=== PATIENT | male | born 1985 | race Two or more races ===

== ENCOUNTER 2025-02-15 21:19 | Inpatient (IN) | payer OTHER ==
[~2025-02-15] VITALS: Ht 175.3 cm; Wt 83.9 kg
--- NOTE | 2025-02-15 21:42 | ED.PDOC ---
History of Present Illness HPI Comments 39 year old male presents to the ED with a chief complaint of dizziness onset today (02/15/25). states patient was doing exercise when he williamson experiencing dizziness, HR was 150, was pale, experienced syncope episode. states patient has experienced 3 similar episodes, last episode was 1 year ago. 911 was called, patient had elevated HR, symptoms were improving, decided to drive patient to ED. Upon ED arrival, patient began experiencing chest tightness, generalized weakness, headache, numbness sensation. BP was 137/82, HR 117. Denies abdominal pain, nausea, vomiting, diarrhea, cough, congestion, head injury. No other symptoms or modifying factors present at this time. Chief Complaint: Dizziness Time Seen by MD: 21:28 Reviewed Notes: Medications, Allergies Allergies: Coded Allergies: NO KNOWN ALLERGIES (Unverified , 02/15/25) Information Source: Patient, Spouse Mode of Arrival: Ambulatory Severity: Moderate Timing: Hours Duration: Since onset Prehospital treatment: None Past Medical History Surgical History: Denies all surgeries Family History Family History: Reviewed,noncontributory to illness, No family hx of Cancer, No family hx of DM, No family hx of Heart bill, No family hx of HTN, No family hx ofKidney bill, No family hx of Liver bill, No family hx of Lung bill, No family hx of Stroke Social History Smoker: Non-Smoker Alcohol: Denies ETOH Use Drugs: Denies Drug Use Lives In: Home Constitutional: reports: sweats, weakness, others (pale); denies: chills, diaphoresis, fatigue, fever, malaise EENTM: denies: blurred vision, double vision, ear bleeding, ear discharge, ear drainage, ear pain, ear ringing, eye pain, eye redness, hearing loss, mouth pain, mouth swelling, nasal discharge, nose bleeding, nose congestion, nose pain, photophobia, tearing, throat pain, throat swelling, voice changes, others Respiratory: denies: cough, hemoptysis, orthopnea, SOB at rest, shortness of breath, SOB with excertion, stridor, wheezing, others Cardiovascular: reports: chest pain; denies: dizzy spells, diaphoresis, Dyspnea on exertion, edema, irregular heart beat, left arm pain, lightheadedness, palpitations, PND, syncope, others Gastrointestinal: denies: abdomen distended, abdominal pain, blood streaked bowels, constipated, diarrhea, dysphagia, difficulty swallowing, hematemesis, melena, nausea, poor appetite, poor fluid intake, rectal bleeding, rectal pain, vomiting, others Neurological: reports: dizziness, headache, numbness, weakness; denies: fainting, left sided numbness, left sided weakness, paresthesia, pre-existing deficit, right sided numbness, right sided weakness, seizure, speech problems, tingling, tremors, others Musculoskeletal: denies: back pain, gout, joint pain, joint swelling, muscle pain, muscle stiffness, neck pain, others Integumetry: reports: change in color (pale); denies: bruises, change in hair/nails, dryness, laceration, lesions, lumps, rash, wounds, others Allergic/Immunocompromised: denies: Difficulty Healing, Frequent Infections, Hives, Itching, others Hematologic/Lymphatic: denies: anemia, blood clots, easy bleeding, easy bruising, swollen glands, others Endocrine: denies: excessive hunger, excessive sweating, excessive thirst, excessive urination, flushing, intolerance to cold, intolerance to heat, unexplained weight gain, unexplained weight loss, others Psychiatric: denies: anxiety, bipolar disorder, depression, hopeless, panic disorder, schizophrenia, sleepless, suicidal, others All Other Systems: Reviewed and Negative Physical Exam General Appearance: No Apparent Distress, Normal HEENT: Normal ENT Inspection, Pharynx Normal, TMs Normal Neck: Full Range of Motion, Non-Tender, Normal, Normal Inspection Respiratory: Chest Non-Tender, Lungs Clear, No Accessory Muscle Use, No Respiratory Distress, Normal Breath Sounds Cardiovascular: No Edema, No JVD, No Murmur, No Gallop, Normal Peripheral Pulses, Regular Rate/Rhythm Breast Exam: Deferred Gastrointestinal: No Organomegaly, Non Tender, No Pulsatile Mass, Normal Bowel Sounds, Soft Genitalia: Deferred Pelvic: Deferred Rectal: Deferred Extremities: No calf tenderness, Normal capillary refill, Normal inspection, Normal range of motion, Non-tender, No pedal edema Musculoskeletal : Apperance: Normal Neurologic: Alert, acquisitions assistant II-XII nml as Tested, No Motor Deficits, Normal Affect, Normal Mood, No Sensory Deficits Cerebellar Function: Normal Reflexes: Normal Skin: Dry, Normal Color, Warm Lymphatic: No Adenopathy Was a procedure done? Was a procedure done?: No Differential Dx Considerations may include: ACS, CVA, CHF, viral syndrome X-Ray, Labs, Meds, VS Vital Signs Date Time Temp Pulse Resp B/P (MAP) Pulse Ox O2 Delivery O2 Flow Rate FiO2 02/15/25 22:26 98.4 118 20 129/68 (88) 100 98.4 02/15/25 22:26 125 02/15/25 21:26 121 02/15/25 21:19 98.4 115 20 132/81 (98) 100 98.4 Lab Test 02/15/25 22:29 02/15/25 21:30 Range/Units Troponin I High Sensitivity 12 5 </=54 ng/L White Blood Count 12.3 H 4.4-10.8 10^3/uL Red Blood Count 5.17 4.5-5.90 10^6/uL Hemoglobin 16.0 13.5-17.5 g/dL Hematocrit 47.6 41.0-53.0 % Mean Corpuscular Volume 91.9 80.0-100.0 fL Mean Corpuscular Hemoglobin 31.0 28.0-32.0 pg Mean Corpuscular Hemoglobin Concent 33.7 32.0-36.0 g/dL Red Cell Distribution Width 14.6 H 11.8-14.3 % Platelet Count 324 140-450 10^3/uL Mean Platelet Volume 7.5 6.9-10.8 fL Neutrophils (%) (Auto) 63.6 37.0-80.0 % Lymphocytes (%) (Auto) 27.2 10.0-50.0 % Monocytes (%) (Auto) 7.0 0.0-12.0 % Eosinophils (%) (Auto) 1.6 0.0-7.0 % Basophils (%) (Auto) 0.6 0.0-2.0 % Neutrophils # (Auto) 7.8 1.6-8.6 10 ^3/uL Lymphocytes # (Auto) 3.3 0.4-5.4 10 ^3/uL Monocytes # (Auto) 0.9 0-1.3 10 ^3/uL Eosinophils # (Auto) 0.2 0-0.8 10 ^3/uL Basophils # (Auto) 0.1 0-0.2 10 ^3/uL Nucleated Red Blood Cells 0.1 % Sodium Level 137 136-145 mmol/L Potassium Level 3.4 L 3.5-5.1 mmol/L Chloride Level 105 98-107 mmol/L Carbon Dioxide Level 17 L 20-31 mmol/L Anion Gap 15 5-15 Blood Urea Nitrogen 18 9-23 mg/dL Creatinine 1.49 H 0.700-1.30 mg/dL Glomerular Filtration Rate Calc 60 >90 mL/min BUN/Creatinine Ratio 12.1 10.0-20.0 Serum Glucose 152 H 74-106 mg/dL Calcium Level 10.0 8.7-10.4 mg/dL Current Medications Medications (Trade) Dose Ordered Sig/Raúl Route Start Time Stop Time Status Last Admin Sodium Chloride 1,000 ml @ 1,000 mls/hr Q1H ONCE IV 02/15/25 21:45 02/15/25 22:44 DC 02/15/25 22:39 Ondansetron HCl (Zofran) 4 mg ONCE ONCE IV 02/15/25 21:45 02/15/25 21:46 DC 02/15/25 22:38 [place] [address] Ph: [phone] DIAGNOSTIC IMAGING Diagnostic Imaging Report : [id number] Signed PATIENT: MARÍA ELENA ECHOLS ACCT: [id number] UNIT: [id number] : 1985 LOC: ER ROOM / BED: / AGE / SEX: 39 / M ADM STATUS: REG ER SERVICE 32 ORDERING PHYSICIAN: TO SAN MD PROCEDURE(s): CXRP - CHEST PORTABLE REASON: syncope ORDER NUMBER(s): [id number], ACCESSION NUMBER(s): [id number] CHEST RADIOGRAPH Indication: syncope Technique: Single frontal view of the chest was obtained Comparison: None FINDINGS: Lines and Tubes: None Lungs: No focal consolidation. Pleura: No effusion. No pneumothorax. Cardiomediastinal contours: Unremarkable Bones: No acute osseous abnormality. IMPRESSION: 1. No acute cardiopulmonary disease. ATED BY: IMER GARCIA MD DICTATED DATE/TIME: 02/15/252199 SIGNED BY: IMER GARCIA MD SIGNED DATE/TIME: 02/15/252199 CC: [address] [address] Ph: [phone] DIAGNOSTIC IMAGING Diagnostic Imaging Report : [id number] Signed PATIENT: MARÍA ELENA ECHOLS ACCT: [id number] UNIT: [id number] : 1985 LOC: ER ROOM / BED: / AGE / SEX: 39 / M ADM STATUS: REG ER SERVICE 32 ORDERING PHYSICIAN: TO SAN MD PROCEDURE(s): HWOCT - HEAD WITHOUT CONTRAST REASON: syncope ORDER NUMBER(s): [id number], ACCESSION NUMBER(s): [id number] EXAM: CT HEAD WITHOUT CONTRAST INDICATION: syncope TECHNIQUE: CT of the head without intravenous contrast. Radiation Dose Information: CT Dose: CTDI volume is 58.21 mGy. Dose-length product is 1263.52 mGy*cm The dose indicators for CT are the volume Computed Tomography (CT) Dose Index (CTDIvol) and the Dose Length Product (DLP), and are measured in units of mGy and mGy-cm, respectively. These indicators are not patient dose, but values generated from the CT scanner acquisition factors. The report includes radiation exposure data for exposures received during this examination. COMPARISON: None FINDINGS: There is no evidence of acute intracranial hemorrhage, extra-axial collection, mass effect, midline shift, herniation or hydrocephalus. The ventricles, sulci and cisterns are age appropriate. The sloan-white differentiation is intact. Patchy periventricular and subcortical white matter hypoattenuation is nonspecific but may be related to small vessel ischemic disease. The visualized paranasal sinuses and mastoid air cells are clear. The surrounding soft tissues and osseous structures are unremarkable. IMPRESSION: 1. No acute intracranial hemorrhage 2. No CT findings of territorial ischemia. ATED BY: KINJAL CROCKETT Jr., DO DICTATED DATE/TIME: 02/15/252207 SIGNED BY: KINJAL CROCKETT Jr., DO SIGNED DATE/TIME: 02/15/252207 CC: Time of 1ST Reevaluation: 21:58 Reevaluation 1ST: Unchanged Patient Education/Counseling: Diagnosis, Treatment, Prognosis Family Education/Counseling: Diagnosis, Treatment, Prognosis Additional Information The following tests were ordered, and results were reviewed by me:UA, BMP, CBC, TROP-x3, DRUG SCREEN, XY CHEST, CT HEAD WO CONTRAST Additional Information was gathered from interviewing the following independent historians: I reviewed and agreed with the following test results read by other providers: XY CHEST, CT HEAD WO CONTRAST I discussed treatment and results with medical personnel and: patient, Comprehensive systems review obtained and negative except for what is stated in the HPI. Departure 1 Departure Time of Disposition: 00:14 (Patient presented with syncope today and should be admitted. Data: 1. I ordered and reviewed the result of at least 3 labs including a CBC, BMP, and troponin. 2. I independently interpreted the following tests: EKG which shows a sinus tachycardia and a chest x-ray which shows benign chest and a CT head which shows benign brain.Risk:This patient has a high risk of morbidity due to further diagnostic testing or treatment and may suffer from an acute cardiac, neurologic, or infectious disorder. Rationale: Patient should be admitted to the hospital for further management.) Impression: Primary Impression: Syncope and collapse Additional Impression: Dehydration Disposition: 09 ADMITTED INPATIENT Admit to: Med Surg Condition: Serious Critical Care Note Critical Care Time?: Yes Critical care comment: Syncope and collapse Authorized and Performed by: To San MD Total critical care time: Approximately 39 minutes Due to a high probability of clinically significant, life threatening deterioration, the patient required my highest level of preparedness to intervene emergently and I personally spent this critical care time directly and personally managing the patient. This critical care time included obtaining a history; examining the patient; pulse oximetry; ordering and review of studies; arranging urgent treatment with development of a management plan; evaluation of patient's response to treatment; frequent reassessment; and, discussions with other providers. This critical care time was performed to assess and manage the high probability of imminent, life-threatening deterioration that could result in multi-organ failure. It was exclusive of separately billable procedures and treating other patients and teaching time. Please see my other sections and the rest of the note for further information on patient assessment and treatment. Stability Stability form required: No I personally scribed for TO SAN MD ([email or web address]) on 02/15/25 at 21:42. Electronically submitted by Argenis [email or web address]). [facility] on 02/15/25 at 22:15. Electronically submitted by Argenis Cassidy ([email or web address]). I personally scribed for TO SAN MD ([facility]) on 02/15/25 at 22:16. Electronically submitted by Argenis Cassidy ([email or web address]). I personally scribed for TO SAN MD ([facility]) on 02/15/25 at 22:50. Electronically submitted by Argenis Cassidy ([email or web address]). TO SAN MD Feb 15, 2025 21:42
[2025-02-15 21:54] LABS: Basophils # (auto) 0.1 10 ^3/uL (0-0.2); Basophils % (auto) 0.6 % (0.0-2.0); Eosinophils # (auto) 0.2 10 ^3/uL (0-0.8); Eosinophils % (auto) 1.6 % (0.0-7.0); Hematocrit 47.6 % (41.0-53.0); Lymphocytes # (auto) 3.3 10 ^3/uL (0.4-5.4); Lymphocytes % (auto) 27.2 % (10.0-50.0); Mean Corpuscular Hgb Conc. 33.7 g/dL (32.0-36.0); Mean Corpuscular Volume 91.9 fL (80.0-100.0); Monocytes # (auto) 0.9 10 ^3/uL (0-1.3); Neutrophils # (auto) 7.8 10 ^3/uL (1.6-8.6); Neutrophils % (auto) 63.6 % (37.0-80.0); Nucleated Red Blood Cells % 0.1 %; Platelet Count (auto) 324 10^3/uL (140-450); Red Blood Cells 5.17 10^6/uL (4.5-5.90); Red Cell Distribution Width 14.6 % (11.8-14.3); White Blood Cell 12.3 10^3/uL (4.4-10.8)
--- NOTE | 2025-02-15 22:03 | DVH ---
CHEST RADIOGRAPH Indication: syncope Technique: Single frontal view of the chest was obtained Comparison: None FINDINGS: Lines and Tubes: None Lungs: No focal consolidation. Pleura: No effusion. No pneumothorax. Cardiomediastinal contours: Unremarkable Bones: No acute osseous abnormality. IMPRESSION: 1. No acute cardiopulmonary disease.
[2025-02-15 22:06] LABS: Chloride 105 mmol/L (98-107); Sodium 137 mmol/L (136-145)
[2025-02-15 22:07] LABS: Anion Gap 15 (5-15)
--- NOTE | 2025-02-15 22:11 | DVH ---
EXAM: CT HEAD WITHOUT CONTRAST INDICATION: syncope TECHNIQUE: CT of the head without intravenous contrast. Radiation Dose Information: CT Dose: CTDI volume is 58.21 mGy. Dose-length product is 1263.52 mGy*cm The dose indicators for CT are the volume Computed Tomography (CT) Dose Index (CTDIvol) and the Dose Length Product (DLP), and are measured in units of mGy and mGy-cm, respectively. These indicators are not patient dose, but values generated from the CT scanner acquisition factors. The report includes radiation exposure data for exposures received during this examination. COMPARISON: None FINDINGS: There is no evidence of acute intracranial hemorrhage, extra-axial collection, mass effect, midline s hift, herniation or hydrocephalus. The ventricles, sulci and cisterns are age appropriate. The sloan-white differentiation is intact. Patchy periventricular and subcortical white matter hypoattenuation is nonspecific but may be related to small vessel ischemic disease. The visualized paranasal sinuses and mastoid air cells are clear. The surrounding soft tissues and osseous structures are unremarkable. IMPRESSION: 1. No acute intracranial hemorrhage 2. No CT findings of territorial ischemia.
[2025-02-15 22:12] LABS: BUN/Creatinine Ratio 12.1 (10.0-20.0); Blood Urea Nitrogen 18 mg/dL (9-23)
[2025-02-15 22:13] LABS: Carbon Dioxide 17 mmol/L (20-31); Glucose 152 mg/dL (74-106); Potassium 3.4 mmol/L (3.5-5.1)
[2025-02-15] MEDS: ONDANSETRON HCL 4 MG/2 ML VIAL IV ONE (22:38)
[2025-02-15] MEDS: SODIUM CHLORIDE 0.9% 1,000 ML IV ONE (22:39)
[2025-02-16] VITALS (10 sets, daily range): BP systolic 99–130; BP diastolic 62–76; PULSE 56–85; RESP 2–20; TEMP 97.4–98.5; O2SAT 95–98
[2025-02-16 01:19] LABS: Urine Bacteria None Seen /hpf (None Seen)
[2025-02-16 01:28] LABS: Urine Blood Negative /uL (Negative); Urine Clarity Clear (Clear); Urine Color Colorless (Yellow); Urine Protein, UAD Negative (Negative); Urine Specific Gravity 1.004 (1.001-1.035); Urine Squamous Epithelial Cell None Seen /hpf (<5); Urine Urobilinogen Normal (Negative); Urine pH 6.5 (5.0-9.0)
[2025-02-16 01:31] LABS: Urine WBC < 1 /HPF (0-3)
[2025-02-16 01:45] LABS: Amphetamine Screen, Urine Neg (NEGATIVE); Barbiturate Scree,Urine Neg (NEGATIVE); Benzodiazephine Screen, Urine Neg (NEGATIVE); Cannabinoid Screen, Urine Neg (NEGATIVE); Cocaine Screen, Urine Neg (NEGATIVE); Opiate Scree,Urine Neg (NEGATIVE); Phencyclidine Screen, Urine Neg (NEGATIVE)
--- NOTE | 2025-02-16 03:22 | DVHHPRES ---
History of Present Illness Resident Creating Document: ISAAC FRANCIS RESIDENT History of Present Illness Mr. Reis is a 39-year-old male with history of right knee surgery who presented to the ER with a chief complaint of dizziness for about a week, seizure-like episode which he experienced on 02/15. Patient reports that he was working out at home and was lifting weights when he experienced dizziness and became lightheaded, associated palpitations and tingling for about a couple of minutes following which he said down on his workout bench and he passed out. Per his who experienced the event patient's body stiffened up and he was numb for about a minute. His checked his heart rate which was in 150, saturation was 97. Patient woke up a minute later and was confused and pale, did not lose urine or bowel. EMS were called and patient decided to go to the ER in his own car, he had a similar episode in the parking lot of the ER very experienced dizziness and later his fingers stiff in the when he was unresponsive and numb. He was taken to the ER. Blood glucose and blood pressure were WNL. Patient had similar episode 3 years ago and an year ago at [facility] and he was told he has vasovagal syncope. Lab workup showed WBC 12.3, creatinine 1.49. GFR 60. Head CT was unremarkable. Past medical history/surgical history: Right knee surgery Home medications: None PCP: None Social history: Denies smoking/drinking/illicit drug use. Lives with Patient seen and examined in the ER. Smoke: No ALCOHOL: none Drugs: None Lives: with Family Review of Systems Constitutional: Yes: Weakness Cardiovascular: Palpitations Genitourinary: Frequency Allergies: Coded Allergies: NO KNOWN ALLERGIES (Unverified , 02/15/25) Exam Vital Signs Vital Signs Date Time Temp Pulse Resp B/P (MAP) Pulse Ox O2 Delivery O2 Flow Rate FiO2 02/16/25 00:58 14 96 Room Air* 0 21 21 02/15/25 22:26 98.4 118 129/68 (88) 98.4 Exam Patient lying in bed, in no acute distress General: Well-built, afebrile, palor, mucosae are moist Cardiovascular: Regular S1 and S2. No murmurs, gallops or rubs. No JVD elevation. No pedal edema Respiratory: Normal B/L air entry on room air. Clear lung sounds on auscu ltation Abdomen: Soft, nontender, nondistended, normoactive bowel sounds, no rebound tenderness, no organomegaly, no masses Genitourinary: Suprapubic tenderness and reports frequency MSK/skin: Mobilizes 4 limbs. Skin is dry and warm Neurological: No motor, no sensitive deficits, normal speech. Pupils are isocoric and reactive. Psych/Mental Status: A/Ox3 Labs/Xrays Labs Test 02/16/25 01:18 02/16/25 00:15 02/15/25 21:30 Range/Units Urine Color Colorless Yellow Urine Clarity Clear Clear Urine pH 6.5 5.0-9.0 Urine Specific [facility] 1.004 1.001-1.035 Urine Protein Negative Negative Urine Ketones Trace Negative Urine Blood Negative Negative /uL Urine Nitrite Negative Negative Urine Bilirubin Negative Negative Urine Urobilinogen Normal Negative mg/dL Urine Leukocyte Esterase Negative Negative /uL Urine RBC None seen 0 - 3 /hpf Urine Microscopic WBC < 1 0-3 /HPF Urine Squamous Epithelial Cells None seen <5 /hpf Urine Bacteria None seen None Seen /hpf Urine Glucose Normal Normal mg/dL Urine Opiates Screen Neg NEGATIVE Urine Fentanyl Screen Neg NEGATIVE Urine Barbiturates Screen Neg NEGATIVE Urine Phencyclidine Screen Neg NEGATIVE Urine Amphetamines Screen Neg NEGATIVE Urine Benzodiazepines Screen Neg NEGATIVE Urine Cocaine Screen Neg NEGATIVE Urine Cannabinoids Screen Neg NEGATIVE Troponin I High Sensitivity 21 </=54 ng/L White Blood Count 12.3 H 4.4-10.8 10^3/uL Red Blood Count 5.17 4.5-5.90 10^6/uL Hemoglobin 16.0 13.5-17.5 g/dL Hematocrit 47.6 41.0-53.0 % Mean Corpuscular Volume 91.9 80.0-100.0 fL Mean Corpuscular Hemoglobin 31.0 28.0-32.0 pg Mean Corpuscular Hemoglobin Concent 33.7 32.0-36.0 g/dL Red Cell Distribution Width 14.6 H 11.8-14.3 % Platelet Count 324 140-450 10^3/uL Mean Platelet Volume 7.5 6.9-10.8 fL Neutrophils (%) (Auto) 63.6 37.0-80.0 % Lymphocytes (%) (Auto) 27.2 10.0-50.0 % Monocytes (%) (Auto) 7.0 0.0-12.0 % Eosinophils (%) (Auto) 1.6 0.0-7.0 % Basophils (%) (Auto) 0.6 0.0-2.0 % Neutrophils # (Auto) 7.8 1.6-8.6 10 ^3/uL Lymphocytes # (Auto) 3.3 0.4-5.4 10 ^3/uL Monocytes # (Auto) 0.9 0-1.3 10 ^3/uL Eosinophils # (Auto) 0.2 0-0.8 10 ^3/uL Basophils # (Auto) 0.1 0-0.2 10 ^3/uL Nucleated Red Blood Cells 0.1 % Sodium Level 137 136-145 mmol/L Potassium Level 3.4 L 3.5-5.1 mmol/L Chloride Level 105 98-107 mmol/L Carbon Dioxide Level 17 L 20-31 mmol/L Anion Gap 15 5-15 Blood Urea Nitrogen 18 9-23 mg/dL Creatinine 1.49 H 0.700-1.30 mg/dL Glomerular Filtration Rate Calc 60 >90 mL/min BUN/Creatinine Ratio 12.1 10.0-20.0 Serum Glucose 152 H 74-106 mg/dL Calcium Level 10.0 8.7-10.4 mg/dL Assessment/Plan Assessment/Plan Seizure-like episode Syncopal episode, rule out cardiogenic causes Rule out acute stroke Leukocytosis, likely reactive Acute kidney injury, likely vasomotor mediated Hypokalemia Vitamin-D deficiency Plan: Head CT unremarkable. MRI brain, carotid Doppler, orthostatic, echocardiogram pending Neurologic consult Follow up with urine studies. Continue IV NS 100 cc an hour Continue aspirin and atorvastatin daily Follow up with prolactin, treponema antibody levels, CK level, ESR, magnesium level 20 IV Potassium supplemented Vitamin-D supplemented Diet: Cardiac Lovenox 40 mg sc daily Plan discussed with patient in which all questions have been answered Goals of care discussed for more than 27 minutes, full code status Case discussed with Dr. Hoover Plan discussed with: Patient, Other ( over the phone) My Orders Orders - ISAAC FRANCIS Procedure Category Date Status Time Admit ADMIT 02/16/25 Verified 03:22 Date of Service: February 16, 2025 Billing Provider: DARON HOOVER MD Common Visit Codes: [id number] INP/OBS CARE (HIGH) ISAAC FRANCIS RESIDENT February 16, 2025 03:22
[2025-02-16] MEDS ORDERED: POTASSIUM CHL 20MEQ/100ML 100 ML IV ONE (04:30)
[2025-02-16] MEDS: POTASSIUM CHL 20MEQ/50ML 50 ML IV ONE (05:15)
[2025-02-16 05:18] LABS: Basophils # (auto) 0 10 ^3/uL (0-0.2); Basophils % (auto) 0.3 % (0.0-2.0); Eosinophils # (auto) 0.2 10 ^3/uL (0-0.8); Eosinophils % (auto) 1.4 % (0.0-7.0); Hematocrit 45.2 % (41.0-53.0); Hemoglobin 14.9 g/dL (13.5-17.5); Lymphocytes # (auto) 3.1 10 ^3/uL (0.4-5.4); Lymphocytes % (auto) 26.3 % (10.0-50.0); Mean Corpuscular Hemoglobin 30.4 pg (28.0-32.0); Mean Corpuscular Volume 92.2 fL (80.0-100.0); Monocytes # (auto) 0.8 10 ^3/uL (0-1.3); Neutrophils # (auto) 7.7 10 ^3/uL (1.6-8.6); Platelet Count (auto) 310 10^3/uL (140-450); Red Cell Distribution Width 14.7 % (11.8-14.3); White Blood Cell 11.9 10^3/uL (4.4-10.8)
[2025-02-16 05:37] LABS: Creatinine, Urine 13.96 mg/dL (30.0-125.0); Urine Protein/Creatinine Ratio 0.43
[2025-02-16 05:38] LABS: Protein, Urine < 6.0 mg/dL (1-14)
[2025-02-16 05:39] LABS: Amphetamine Screen, Urine Neg (NEGATIVE); Barbiturate Scree,Urine Neg (NEGATIVE); Benzodiazephine Screen, Urine Neg (NEGATIVE); Cannabinoid Screen, Urine Neg (NEGATIVE); Cocaine Screen, Urine Neg (NEGATIVE); Opiate Scree,Urine Neg (NEGATIVE); Phencyclidine Screen, Urine Neg (NEGATIVE)
[2025-02-16 05:39] LABS: INR 1.01 (0.9-1.15); Partial Thromboplastin Time 27.1 SEC (24.5-34.5); Prothrombin Time 10.7 sec (9.3-11.8)
[2025-02-16 05:41] LABS: Prolactin 5.8 ng/mL (2.1-17.7)
[2025-02-16 05:52] LABS: Alanine Aminotransferase 27 U/L (7-40); Albumin 4.4 g/dL (3.2-4.8); Alkaline Phosphatase 69 U/L (46-116); Anion Gap 7 (5-15); Aspartate Aminotransferase 18 U/L (13-40); BUN/Creatinine Ratio 11.9 (10.0-20.0); Bilirubin, Total 0.7 mg/dL (0.2-1.0); Blood Urea Nitrogen 13 mg/dL (9-23); Calcium 9.6 mg/dL (8.7-10.4); Carbon Dioxide 25 mmol/L (20-31); Glucose 101 mg/dL (74-106); Magnesium 2.2 mg/dL (1.6-2.6); Potassium 4.5 mmol/L (3.5-5.1); Sodium 141 mmol/L (136-145); Total Protein 7.1 g/dL (5.7-8.2)
[2025-02-16 05:58] LABS: Chloride 109 mmol/L (98-107); Creatine Kinase IFCC 254 U/L (46-171)
[2025-02-16] MEDS: SODIUM CHLORIDE 0.9% 1,000 ML IV ONE (06:05)
[2025-02-16 06:09] LABS: Erythrocyte Sedimentation Rate 4 mm/hr (0-20)
[2025-02-16] MEDS: ACETAMINOPHEN 500 MG TAB or CAP PO PRN (06:10)
[2025-02-16 06:17] LABS: CRP High Sensitivity 0.12 mg/dL (<1.0)
--- NOTE | 2025-02-16 09:05 | DVH ---
EXAMINATION: MRI BRAIN HEAD WO CONTRAST INDICATION: Seizure-like episode COMPARISON: CT head 02/15/2025 TECHNIQUE: Multiplanar, multisequence magnetic resonance imaging of the brain was performed without t he use of intravenous contrast. FINDINGS: There is no restricted diffusion. The sloan and white matter signal is appropriate. There is no eviden ce of hemorrhage, mass, mass effect or midline shift. There is no hydrocephalus or extra-axial fluid collection. The visualized intracranial vasculature demonstrates appropriate flow-voids. The sagittal midline structures appear unremarkable. The craniocervical junction is within normal limits. The myriam varium demonstrates normal marrow signal. The paranasal sinuses and mastoid air cells are clear. IMPRESSION: 1. Unremarkable noncontrast MRI brain. HS:Y
[2025-02-16 09:44] LABS: COVID19 ANTIGEN SOFIA FIA NEGATIVE (NEGATIVE); Rapid Influenza A Negative (Negative); Rapid Influenza B Negative (Negative)
[2025-02-16] MEDS: ERGOCALCIFEROL 50,000 UNIT(1.25MG) CAP PO SCH (09:53)
[2025-02-16] MEDS: ENOXAPARIN SOD 40 MG/0.4 ML SYRINGE SC SCH (10:00)
[2025-02-16] MEDS: ASPirin 81 mg TAB PO SCH (10:31)
--- NOTE | 2025-02-16 11:18 | DVH ---
PROCEDURE: US CAROTID DUPLX W COLOR DOP 02/16/2025 08:53 AM INDICATION: Dizziness COMPARISON: None TECHNIQUE: Real-time grayscale and color Doppler images of the neck arteries were obtained with spect ral analysis performed. FINDINGS: RIGHT: No significant atherosclerotic plaque identified in the carotid. Normal spectral waveforms are seen. ICA peak systolic velocity: 140 cm/s ICA end-diastolic velocity: 19 cm/s ICA/CCA ratios: 1.3 LEFT: No significant atherosclerotic plaque identified in the carotid. Normal spectral waveforms are seen. ICA peak systolic velocity: 144 cm/s ICA end-diastolic velocity: 37 cm/s ICA/CCA ratios: 1.2 VERTEBRAL ARTERIES: Normal antegrade flow is seen bilaterally. Normal spectral waveforms. IMPRESSION: 1. No hemodynamically significant carotid artery stenosis identified bilaterally. Reference: Radiology 2003; 229:340-346 Normal ICA PSV is <125 cm/sec and no plaque or intimal thickening is visible sonographically addition al criteria include ICA/CCA PSV ratio <2.0 and ICA EDV <40 cm/sec <50% ICA stenosis ICA PSV is <125 cm/sec and plaque or intimal thickening is visible sonographically additional criteria include ICA/CCA PSV ratio <2.0 and ICA EDV <40 cm/sec 50-69% ICA stenosis ICA PSV is 125-230 cm/sec and plaque is visible sonographically additional criter ia include ICA/CCA PSV ratio of 2.0-4.0 and ICA EDV of 40-100 cm/sec 70% ICA stenosis but less than near occlusion ICA PSV is >230 cm/sec and visible plaque and luminal narrowing are seen at sloan-scale and color Doppler ultrasound (the higher the Doppler parameters lie above the threshold of 230 cm/sec, the greater the likelihood of severe disease) additional criteria include ICA/CCA PSV ratio >4 and ICA EDV >100 cm/sec
--- NOTE | 2025-02-16 13:57 | DVHSR ---
APPROVED REPORT EXAM: Two-dimensional and M-mode echocardiogram with Doppler and color Doppler. Blood Pressure: 125/72 mmHg INDICATION Syncope RISK FACTORS Height: 5'9, Weight: 177 DIMENSIONS LVDd4.2 (3.8-5.7cm)LA (2D)3.6 (1.9-4.0cm)Aortic Root3.4 (2.0-3.7cm) LVDs2.7 (2.5-4.0cm)LA (MM) (1.9-4.0cm)Aortic Cusp Exc2.0 (1.5-2.0cm) EF (%) 60.0 (55-70%)Rt. Atrium3.9 (1.9-4.0cm)Asc. Aorta3.4 cm IVSd1.0 (0.7-1.1cm)RV (D)3.8 (1.8-2.4cm) PWd1.0 (0.7-1.1cm) Mitral Valve MitralMitral Stenosis E wave0.74m/sMV Mean GR.mmHg A wave0.64m/sMV Peak GR.mmHg E/A ratio1.22D MVAcm2 DECEL [id number] 1/2 [place] Aortic Valve Aortic ValveAortic Stenosis V10.98m/[place] Mean GR.3mmHg V21.14m/[place] Peak GR.5mmHg LVOT Diameter2.2 (1.8-2.4cm)Doppler AVA3.27cm2 Pulmonic Valve V20.85m/s Conclusion lvef 65% normal LV function and size normal RV function normal atria no severe valve abnormalities noted normal pericardium
[2025-02-16 14:57] LABS: Sodium Urine 46 mmol/L (40-220)
--- NOTE | 2025-02-16 17:36 | BSKYNEURO ---
[facility] # Demographics Consult Type: General Neurology Patient Location: Inpatient First Name: Rey Last Name: Chato Date of : 1985 Age: 39 Gender: Male Facility: [facility] Time of Initial Page (): 02/16/2025 13:33 Time of Return Call ( Time): 02/16/2025 13:33 Phone Agreement: - phone consult deemed mutually sufficient for patient care # HPI History: 39 y/o M with Hx of syncope presents after a syncopal episode while lifting weights. He felt lightheaded with palpitations and then had LOC. His noted stiffening. He had a quick recovery. He had a second episode on route preceded by dizziness. 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 I performed this phone consultation from my offsite office Total time spent in telemedicine encounter: I spent 20 minutes in reviewing clinical data and/or imaging, obtaining history, communicating with the onsite care team, and in preparation of this report. # Demographics First Name: Rey Last Name: Chato Facility: [facility] Electronically signed at 02/16/2025 17:35 () by DO William Renae ELIZABETH A DO February 16, 2025 17:36
[2025-02-16] MEDS: ATORVASTATIN 20 MG TAB PO SCH (20:35)
[2025-02-17] VITALS (8 sets, daily range): BP systolic 0–125; BP diastolic 56–75; PULSE 64–85; RESP 18–20; TEMP 97.7–98.6; O2SAT 94–100
[2025-02-17] MEDS: HYDROcodone-ACET 5/325MG TAB PO PRN (00:23)
--- NOTE | 2025-02-17 06:53 | ECG ---
[facility] Test Date: 2025-02-15 Test Time: 22:26:36 Pat Name: MARÍA ELENA ECHOLS Department: ER Room: 0248T B Gender: M Rn Dialysis: ER : 1985 Requested By: TO SAN Order Number: [id number] Reading MD: Sanket Jewell Measurements Intervals [place] Rate: 125 P: 76 MN: 153 QRS: 57 QRSD: 118 T: 17 QT: 325 QTc: 469 Interpretive Statements Sinus tachycardia Nonspecific intraventricular conduction delay Probable inferior infarct, old Electronically Signed On 02-17-2025 9:17:20 PDT by Sanket Jewell Please click the below link to view image of tracing.
--- NOTE | 2025-02-17 12:10 | DVHPN2 ---
Subjective The patient seen and examined at bedside. The patient did not have any syncopal episode Reviewed: Care Plan, H&P, Labs, Medications, Previous Orders, Radiology Changes from previous H/P or p: No Changes Cardiovascular: Palpitations Genitourinary: Frequency Objective Vitals Vital Signs Date Time Temp Pulse Resp B/P (MAP) Pulse Ox O2 Delivery O2 Flow Rate FiO2 02/17/25 08:32 98.5 78 18 92/63 (73) 98 98.5 02/17/25 08:00 Room Air* 0 21 Intake/Output Intake and Output 02/17/25 07:00 Intake Total 1210 ml Balance 1210 ml Intake Oral 1210 ml # Voids 10 # Bowel Movements 2 General Appearance: Alert, Oriented X3, Cooperative, No acute distress HEENT: Atraumatic, PERRLA, EOMI, Mucous membr. moist/pink Lungs: Clear to auscultation, Normal air movement Cardiovascular: Regular rate, Normal S1, Normal S2, No murmurs, Gallops, Rubs Abdomen: Normal bowel sounds, Soft, No tenderness Neuro: Cranial nerves 3-12 NL Psych/Mental Status: Mental status NL Medications Current Medications Medications Dose Ordered Sig/Raúl Route Start Time Stop Time Status Last Admin Dose Admin Acetaminophen 500 mg Q4HPRN PRN PO 02/16/25 04:30 02/16/25 20:35 500 MG Acetaminophen/ Hydrocodone Bitart 1 tab Q4HPRN PRN PO 02/16/25 04:30 02/17/25 00:23 1 TAB Enoxaparin Sodium 40 mg DAILY SC 02/16/25 10:00 Aspirin 81 mg DAILY PO 02/16/25 10:00 02/17/25 09:31 81 MG Atorvastatin Calcium 40 mg HS PO 02/16/25 22:00 02/16/25 20:35 40 MG Ergocalciferol 50,000 unit Q7D PO 02/16/25 06:00 02/16/25 09:53 50,000 UNIT Laboratory Results Laboratory Tests 02/16/25 04:51 Urinalysis Test 02/16/25 01:18 Urine Color Colorless (Yellow) Urine Clarity Clear (Clear) Urine pH 6.5 (5.0-9.0) Urine Specific [place] 1.004 (1.001-1.035) Urine Protein Negative (Negative) Urine Ketones Trace (Negative) Urine Blood Negative /uL (Negative) Urine Nitrite Negative (Negative) Urine Bilirubin Negative (Negative) Urine Urobilinogen Normal mg/dL (Negative) Urine Leukocyte Esterase Negative /uL (Negative) Urine RBC None seen /hpf (0 - 3) Urine Microscopic WBC < 1 /HPF (0-3) Urine Squamous Epithelial Cells None seen /hpf (<5) Urine Bacteria None seen /hpf (None Seen) Urine Creatinine 13.96 mg/dL (30.0-125.0) L Urine Protein/Creatinine Ratio 0.43 Urine Sodium 46 mmol/L (40-220) Urine Glucose Normal mg/dL (Normal) Urine Total Protein < 6.0 mg/dL (1-14) Labs and/or images reviewed: Labs reviewed by me Assessment/Plan Assessment/Plan Seizure-like episode Syncopal episode, rule out cardiogenic causes Rule out acute stroke Leukocytosis, likely reactive Acute kidney injury, likely vasomotor mediated Hypokalemia Vitamin-D deficiency Plan: Continuing, management We will follow up with MRI brain, carotid Doppler, orthostatic, echocardiogram Coiling for Neurologic consult Continue IV NS 100 cc an hour Continue aspirin and atorvastatin daily Waiting for neurologist to see the patient. Plan discussed with: Patient My Orders Orders - STANTON FERRELL MD Procedure Category Date Status Time [facility] Consult CONS 02/16/25 Transmitted 12:47 Eeg Awake/Sleep/Act EEG 02/17/25 Transmitted 10:07 * Human Resources Psychologist CONS 02/17/25 Transmitted Consult Date of Service: February 17, 2025 Billing Provider: STANTON FERRELL MD Common Visit Codes: [id number] INP/OBS CARE(HIGH) STANTON FERRELL MD February 17, 2025 12:10
--- NOTE | 2025-02-17 14:06 | ECG ---
[facility] Test Date: 2025-02-15 Test Time: 21:26:47 Pat Name: MARÍA ELENA ECHOLS Department: ER Room: 0248T B Gender: M Lighting Designer: OBDULIA : 1985 Requested By: TO SAN Order Number: [id number] Reading MD: Sanket Jewell Measurements Intervals [place] Rate: 121 P: 65 ME: 160 QRS: 47 QRSD: 115 T: 28 QT: 345 QTc: 490 Interpretive Statements Sinus tachycardia Nonspecific intraventricular conduction delay Electronically Signed On 02-17-2025 15:33:44 PDT by Sanket Jewell Please click the below link to view image of tracing.
--- NOTE | 2025-02-18 00:20 | DVHEEG2 ---
Neurology EEG Procedural Note Procedural Note EXAM DATE: 02/17/2025 REFERRING DOCTOR: Dr. Le TECHNIQUE: Eighteen channels of EEG, 2 channels of EOG, and 1 channel of EKG were recorded using the International 10/20 system. CLINICAL DATA: The patient was referred for an EEG evaluation for the evidence of seizure disorder. MEDICATIONS: See the chart BACKGROUND ACTIVITY: While the patient was awake, the background activity consisted of well regulated 10 Hz rhythmic waveforms, symmetrically distributed over both posterior quadrants and was reactive to eye opening. ACTIVATION: Hyperventilation: Not donee Photic Stimulation: Not done Sleep: Not seen IMPRESSION: This is a normal EEG. No focal, lateralized, or epileptiform features are noted. If clinically indicated to rule out a seizure disorder, recommend repeat EEG with sleep deprivation. The EKG channel showed a regular heart rate of 72 per minute [place] [address] ROSEANNA SEYMOUR MD February 18, 2025 00:20
[2025-02-18 01:00] VITALS: BP_SYST 106; BP_SYST 118; BP_SYST 119; BP_DIAS 52; BP_DIAS 64; BP_DIAS 67; PULSE 74; RESP 19; TEMP 98.4; O2SAT 95
[2025-02-18 04:46] VITALS: BP 107/70; PULSE 76; RESP 19; TEMP 97.9; O2SAT 95
[2025-02-18 08:00] VITALS: PULSE 64; PULSE 84; RESP 18; O2SAT 97
[2025-02-18 09:00] VITALS: BP 101/68; PULSE 61; RESP 18; TEMP 97.9; O2SAT 98
--- NOTE | 2025-02-18 12:30 | BSKYNEURO ---
[facility] # Demographics Consult Type: General Neurology Patient Location: Inpatient First Name: Rey Last Name: Chato Date of : 1985 Age: 39 Gender: Male Facility: [facility] Time of Initial Page (): 02/18/2025 09:21 Time of Return Call (): 02/18/2025 09:23 # HPI History: 39M presented with seizure activity at home. Has had 3 total episodes: feels dizzy, totally blacks out and loses consciousness. Slowly wakes up, like he's in a dream. On his way to the hospital, started feeling shaky/chest pressure, then stiffness in his arms. Then passed out, woke up and was unable to move. Mother has similar syndrome. EEG done on 02/17, read pending. CT head negative. TTE and carotid ultrasounds normal. # Exam Time of Exam (): 02/18/2025 12:00 Vitals: vital signs reviewed Mental Status: - awake - alert and oriented x 3 - follows commands Language: - normal speech Cranial Nerves: - normal Motor: - normal strength Sensory: - normal sensation Cerebellar: - normal cerebellar exam # Assessment Impression: Convulsive syncope # Plan Medication: No antiseizure medications unless there is a focal abnormality on EEG Other: - If patient has any neurological deterioration please call me back immediately - will need event monitor or loop recorder as outpatient if atrial fibrillation not found as inpatient Cardiology consultation Additional Recommendations: No further inpatient work-up needed from neurology perspective Disposition: continue admission # Logistics Attestation of consult completion: The patient is located at: [facility]. Facility staff participated in the visit. I performed this telemedicine visit from my offsite office utilizing interactive 2 way audio and visual telecommunication technology. Consent: Verbal consent was obtained from the patient and/or family for this encounter. Total time spent in telemedicine encounter: I spent 10 minutes reviewing clinical data and/or imaging, obtaining history, examining the patient, communicating with the onsite care team, and in preparation of this report. Electronically signed at 02/18/2025 12:30 () by Jadiel Anderson MD Yes JADIEL ANDERSON MD February 18, 2025 12:30
[2025-02-18 13:00] VITALS: BP 108/58; PULSE 72; RESP 18; TEMP 98; O2SAT 96
--- NOTE | 2025-02-18 15:41 | DVHPN2 ---
Subjective The patient seen and examined at bedside. The patient did not have any syncopal episode Reviewed: Care Plan, H&P, Labs, Medications, Previous Orders, Radiology Cardiovascular: Palpitations Genitourinary: Frequency Objective Vitals Vital Signs Date Time Temp Pulse Resp B/P (MAP) Pulse Ox O2 Delivery O2 Flow Rate FiO2 02/18/25 13:00 98.0 72 18 108/58 (75) 96 98.0 02/18/25 08:00 Room Air* 0 21 Intake/Output Intake and Output 02/18/25 07:00 Intake Total 1400 ml Output Total 1000 ml Balance 400 ml Intake Oral 1400 ml Output Urine Total 1000 ml # Voids 7 General Appearance: Alert, Oriented X3, Cooperative, No acute distress HEENT: Atraumatic, PERRLA, EOMI, Mucous membr. moist/pink Lungs: Clear to auscultation, Normal air movement Cardiovascular: Regular rate, Normal S1, Normal S2, No murmurs, Gallops, Rubs Abdomen: Normal bowel sounds, Soft, No tenderness Neuro: Cranial nerves 3-12 NL Psych/Mental Status: Mental status NL Medications Current Medications Medications Dose Ordered Sig/Raúl Route Start Time Stop Time Status Last Admin Dose Admin Acetaminophen 500 mg Q4HPRN PRN PO 02/16/25 04:30 02/16/25 20:35 500 MG Acetaminophen/ Hydrocodone Bitart 1 tab Q4HPRN PRN PO 02/16/25 04:30 02/17/25 00:23 1 TAB Enoxaparin Sodium 40 mg DAILY SC 02/16/25 10:00 Aspirin 81 mg DAILY PO 02/16/25 10:00 02/18/25 10:29 81 MG Atorvastatin Calcium 40 mg HS PO 02/16/25 22:00 02/17/25 21:07 40 MG Ergocalciferol 50,000 unit Q7D PO 02/16/25 06:00 02/16/25 09:53 50,000 UNIT Laboratory Results Laboratory Tests 02/16/25 04:51 Urinalysis Test 02/16/25 01:18 Urine Color Colorless (Yellow) Urine Clarity Clear (Clear) Urine pH 6.5 (5.0-9.0) Urine Specific [place] 1.004 (1.001-1.035) Urine Protein Negative (Negative) Urine Ketones Trace (Negative) Urine Blood Negative /uL (Negative) Urine Nitrite Negative (Negative) Urine Bilirubin Negative (Negative) Urine Urobilinogen Normal mg/dL (Negative) Urine Leukocyte Esterase Negative /uL (Negative) Urine RBC None seen /hpf (0 - 3) Urine Microscopic WBC < 1 /HPF (0-3) Urine Squamous Epithelial Cells None seen /hpf (<5) Urine Bacteria None seen /hpf (None Seen) Urine Creatinine 13.96 mg/dL (30.0-125.0) L Urine Protein/Creatinine Ratio 0.43 Urine Sodium 46 mmol/L (40-220) Urine Glucose Normal mg/dL (Normal) Urine Total Protein < 6.0 mg/dL (1-14) Assessment/Plan Assessment/Plan Seizure-like episode Syncopal episode, rule out cardiogenic causes Rule out acute stroke Leukocytosis, likely reactive Acute kidney injury, likely vasomotor mediated Hypokalemia Vitamin-D deficiency Plan: Continuing, management We will follow up with MRI brain, carotid Doppler, orthostatic, echocardiogram Coiling for Neurologic consult Continue IV NS 100 cc an hour Continue aspirin and atorvastatin daily Waiting for neurologist to see the patient. My Orders Orders - STANTON FERRELL MD Procedure Category Date Status Time * Cardiology Consult CONS 02/18/25 Transmitted 14:47 STANTON FERRELL MD February 18, 2025 15:41
--- NOTE | 2025-02-18 16:26 | DVHDS2 ---
Discharge Summary Date of Admission February 16, 2025 at 03:22 Labs/Diagnostic Data: Laboratory Results Test 02/16/25 05:00 02/16/25 04:51 02/16/25 01:18 02/16/25 00:15 Influenza Type A Antigen Negative (Negative) Influenza Type B Antigen Negative (Negative) SARS-CoV-2 Antigen (Rapid) Negative (NEGATIVE) White Blood Count 11.9 10^3/uL (4.4-10.8) Red Blood Count 4.90 10^6/uL (4.5-5.90) Hemoglobin 14.9 g/dL (13.5-17.5) Hematocrit 45.2 % (41.0-53.0) Mean Corpuscular Volume 92.2 fL (80.0-100.0) Mean Corpuscular Hemoglobin 30.4 pg (28.0-32.0) Mean Corpuscular Hemoglobin Concent 33.0 g/dL (32.0-36.0) Red Cell Distribution Width 14.7 % (11.8-14.3) Platelet Count 310 10^3/uL (140-450) Mean Platelet Volume 7.4 fL (6.9-10.8) Neutrophils (%) (Auto) 65.0 % (37.0-80.0) Lymphocytes (%) (Auto) 26.3 % (10.0-50.0) Monocytes (%) (Auto) 7.0 % (0.0-12.0) Eosinophils (%) (Auto) 1.4 % (0.0-7.0) Basophils (%) (Auto) 0.3 % (0.0-2.0) Neutrophils # (Auto) 7.7 10 ^3/uL (1.6-8.6) Lymphocytes # (Auto) 3.1 10 ^3/uL (0.4-5.4) Monocytes # (Auto) 0.8 10 ^3/uL (0-1.3) Eosinophils # (Auto) 0.2 10 ^3/uL (0-0.8) Basophils # (Auto) 0 10 ^3/uL (0-0.2) Nucleated Red Blood Cells 0.0 % Erythrocyte Sedimentation Rate 4 mm/hr (0-20) Prothrombin Time 10.7 sec (9.3-11.8) Prothrombin Time INR 1.01 (0.9-1.15) Activated Partial Thromboplast Time 27.1 SEC (24.5-34.5) Sodium Level 141 mmol/L (136-145) Potassium Level 4.5 mmol/L (3.5-5.1) Chloride Level 109 mmol/L (98-107) Carbon Dioxide Level 25 mmol/L (20-31) Anion Gap 7 (5-15) Blood Urea Nitrogen 13 mg/dL (9-23) Creatinine 1.09 mg/dL (0.700-1.30) Glomerular Filtration Rate Calc 87 mL/min (>90) BUN/Creatinine Ratio 11.9 (10.0-20.0) Serum Glucose 101 mg/dL (74-106) Hemoglobin A1c 5.0 % A1C (<5.7) Calcium Level 9.6 mg/dL (8.7-10.4) Magnesium Level 2.2 mg/dL (1.6-2.6) Total Bilirubin 0.7 mg/dL (0.2-1.0) Aspartate Amino Transferase (AST) 18 U/L (13-40) Alanine Aminotransferase (ALT) 27 U/L (7-40) Alkaline Phosphatase 69 U/L (46-116) Creatine Kinase 254 U/L (46-171) C-Reactive Protein High Sensitivity 0.12 mg/dL (<1.0) Total Protein 7.1 g/dL (5.7-8.2) Albumin 4.4 g/dL (3.2-4.8) Vitamin B12 Level 691 pg/mL (211-911) Vitamin D 25-Hydroxy 29.3 ng/mL (30.0-100) Thyroid Stimulating Hormone (TSH) 0.73 uIU/mL (0.55-4.78) Prolactin 5.80 ng/mL (2.1-17.7) Treponema pallidum Antibody Non-reactive (Negative) Urine Color Colorless (Yellow) Urine Clarity Clear (Clear) Urine pH 6.5 (5.0-9.0) Urine Specific [place] 1.004 (1.001-1.035) Urine Protein Negative (Negative) Urine Ketones Trace (Negative) Urine Blood Negative /uL (Negative) Urine Nitrite Negative (Negative) Urine Bilirubin Negative (Negative) Urine Urobilinogen Normal mg/dL (Negative) Urine Leukocyte Esterase Negative /uL (Negative) Urine RBC None seen /hpf (0 - 3) Urine Microscopic WBC < 1 /HPF (0-3) Urine Squamous Epithelial Cells None seen /hpf (<5) Urine Bacteria None seen /hpf (None Seen) Urine Creatinine 13.96 mg/dL (30.0-125.0) Urine Protein/Creatinine Ratio 0.43 Urine Sodium 46 mmol/L (40-220) Urine Glucose Normal mg/dL (Normal) Urine Total Protein < 6.0 mg/dL (1-14) Urine Opiates Screen Neg (NEGATIVE) Urine Fentanyl Screen Neg (NEGATIVE) Urine Barbiturates Screen Neg (NEGATIVE) Urine Phencyclidine Screen Neg (NEGATIVE) Urine Amphetamines Screen Neg (NEGATIVE) Urine Benzodiazepines Screen Neg (NEGATIVE) Urine Cocaine Screen Neg (NEGATIVE) Urine Cannabinoids Screen Neg (NEGATIVE) Troponin I High Sensitivity 21 ng/L (</=54) Other Laboratory Tests 02/16/25 04:51 Discharge Statement: "Patient was advised to return to the ER or call 911 if any headaches, dizziness, shortness of breath, chest pain, abdominal pain, bleeding, fevers, or worsening of medical condition. Patient was counseled about treatment plan, medications, possible side effects, patientverbalized understanding. All questions were answered to the best of my ability. This discharge took greater then 30 minutes in planning, reviewing documentation, counseling the patient, and discussing with other team members." ASSESSMENT ASSESSMENT Assessment STANTON FERRELL MD February 18, 2025 16:26
== END 2025-02-18 16:22 | disposition left against medical advice (07) | DRG 100 ==
LOC: ER 21:19 → OVERFLOW 02-16 03:22 → TELE-EAST 02-16 05:18
PROVIDERS: ADMIT Internal Medicine; ATTEND Internal Medicine
DX: R56.9 Unspecified convulsions (principal); N17.0 Acute kidney failure with tubular necrosis; R55 Syncope and collapse; E87.6 Hypokalemia; D72.829 Elevated white blood cell count, unspecified; E55.9 Vitamin D deficiency, unspecified; Z20.822 Contact with and (suspected) exposure to COVID-19; E86.0 Dehydration; Z53.29 Procedure and treatment not carried out because of patient's decision for other reasons
CPT/HCPCS: 36415; 70450; 70551; 71045; 80048; 80053; 80307; 81001; 82306; 82550; 82570; 82607; 83036; 83735; 84146; 84156; 84300; 84443; 84484; 85025; 85610; 85652; 85730; 86141; 86780; 87426; 87804; 93306; 93886; 95819; 96360; 99291; G0378; J2405